=== PATIENT | female | born 1980 | race Caucasian/White ===

== ENCOUNTER 2018-09-24 07:27 | Emergency (ER) | payer SELFPAY ==
[2018-09-24] MEDS ORDERED: KETOROLAC TROMETHAMINE 60 MG/2 ML SDV IM ONE (08:04)
--- NOTE | 2018-09-24 08:40 | RADIOLOGY REPORT (SQ) ---
EXAM DESCRIPTION: RIBS RIGHT W/PA CHEST COMPLETED DATE/TIME: 09/24/2018 8:25 am REASON FOR STUDY: rib pain COMPARISON: None. TECHNIQUE: Frontal view of the chest and additional views of the right ribs acquired. NUMBER OF VIEWS: Three view. LIMITATIONS: None. FINDINGS: FRONTAL CXR: No pneumothorax. No pleural effusion. No atelectasis or infiltrates. RIBS: No displaced rib fractures. No lytic or blastic bony lesions. OTHER: Left chest vagal nerve stimulator. IMPRESSION: No displaced fracture or other radiographic abnormality of the ribs to explain pain. No acute abnormality of the lungs. COMMENT: SITE OF TRAUMA/COMPLAINT MARKED/STAMP COMPLETED: YES. TECHNICAL DOCUMENTATION: JOB ID: [id number] [employer]- All Rights Reserved Reading location - IP/workstation name: [email or web address]
--- NOTE | 2018-09-24 08:48 | ER Document Report ---
HPI - HPI Patient complains to provider of: right rib pain Time Seen by Provider: 09/24/18 08:00 Onset: Other Onset/Duration: Sudden Quality of pain: Achy Severity: Severe Pain Level: 5 Context: Patient presents emergency department for complaints of right-sided rib pain. Patient reports 3 days ago she was helping someone and a metal pipe hit her rib. She reports pain since that time. She reports she is also visiting from out of town for her son's graduation from the [employer]. She denies other symptoms such as fever vomiting diarrhea. Reports pain with a deep breath. Associated Symptoms: None Exacerbated by: Deep breathing Relieved by: Denies Similar symptoms previously: No Recently seen / treated by doctor: No - REPRODUCTIVE Reproductive: DENIES: : - MUSCULOSKELETAL Musculoskeletal: REPORTS: Extremity pain - right side Past Medical History - General Information source: Patient - Social History Smoking Status: Current Every Day Smoker Chew tobacco use (# tins/day): No Drug Abuse: None Lives with: Family Family History: None Patient has suicidal ideation: No Patient has homicidal ideation: No Neurological Medical History: Reports: Hx Seizures Renal/ Medical History: Denies: Hx Peritoneal Dialysis Past Surgical History: Reports: Hx Section, Hx Cholecystectomy Vertical Provider Document - CONSTITUTIONAL Agree With Documented VS: Yes Exam Limitations: No Limitations General Appearance: WD/WN, No Apparent Distress - INFECTION CONTROL TRAVEL OUTSIDE OF THE [place] IN LAST 30 DAYS: No - HEENT HEENT: Atraumatic, Normocephalic - NECK Neck: Normal Inspection, Supple. negative: Lymphadenopathy-Left, Lymphadenopathy-Right - RESPIRATORY Respiratory: Breath Sounds Normal, No Respiratory Distress, Other - Patient reports right-sided rib pain area tender to palpate. No bruising no ecchymosis respiratory rate even unlabored. - CARDIOVASCULAR Cardiovascular: Regular Rate - GI/ABDOMEN Gastrointestinal: Abdomen Soft, Abdomen Non-Tender - BACK Back: Normal Inspection - MUSCULOSKELETAL/EXTREMETIES Musculoskeletal/Extremeties: ANGEL [place] - NEURO Level of Consciousness: Awake, Alert, Appropriate Motor/Sensory: No Motor Deficit - DERM Integumentary: Warm, Dry Adult Front & Back Diagram: 1 - Patient complains of pain no obvious injury no bruising noted. Course - Re-evaluation Re-evalutation: 09/24/18 09:03 Patient requested pain medicine when I first interviewed her. Upon review of the [place] controlled substance report I noted patient receives morphine and Oxy monthly. Patient reports that she has some back pain. And I discussed narcotics with her she reports she is only allowed to take those every 3 hours. Patient was instructed on the importance of cough deep breathing to prevent pneumonia. She was warned against wrapping her ribs. She was encouraged to take ibuprofen or an anti-inflammatory for the pain. - Vital Signs Vital signs: Temp Pulse Resp BP Pulse Ox 97.7 F 67 20 106/64 99 09/24/18 07:33 09/24/18 07:33 09/24/18 07:33 09/24/18 07:33 09/24/18 07:33 - Diagnostic Test Radiology reviewed: Image reviewed, Reports reviewed - No displaced fracture negative x-ray Discharge - Discharge Clinical Impression: Rib pain on right side Condition: Stable Disposition: HOME, SELF-CARE Instructions: Rib Contusion ([facility]) Additional Instructions: *You have been evaluated for rib pain *Take ibuprofen as indicated *Cough and deep breathe at least once an hour as discussed *Follow up with a primary care provider within 5 days *Return to ED for worsening condition, changes, needs *Return to ED if not better in 24 hours
[2018-09-24 08:52] VITALS: BP 105/56
== END 2018-09-24 08:53 | disposition home or self-care (01) ==
LOC: ER 07:27
DX: R07.81 Pleurodynia (principal); W22.8XXA Striking against or struck by other objects, initial encounter; Y93.89 Activity, other specified; F17.200 Nicotine dependence, unspecified, uncomplicated; M54.9 Dorsalgia, unspecified; Z79.891 Long term (current) use of opiate analgesic
CPT/HCPCS: 99283; 96372; 71101; J1885